=== PATIENT | male | born 1950 | race Caucasian/White ===

== ENCOUNTER → 2017-03-01 | Outpatient (CLI) | payer OTHER ==
[~2017-03-01] MED LIST: ATOR80TA45 PO; CALC-131 PO; CINN500T PO; CO Q100C9 PO; CRAN125T PO; CYCL0.8T PO; DAPA1TAB3 PO; DOCU1CAP39 PO; FISH120014 PO; FOLI400T PO; GLIM4TAB PO; GREE315C2 PO; HYDR-3580 PO; JANU50TA8 PO; LISI-519 PO; METO1TAB9 PO; MISC-163; OXCA600T PO; PYRI100T PO; SELE200T2 PO; VITA10004 PO; VITA400C5 PO; WALKER WHEELS/F1 MIS; XARE10TA PO; [UNRECOGNIZED DRUG - CODE] PO
--- NOTE | 2017-03-01 13:49 | RADRPT ---
EXAM DATE/TIME: 03/01/2017 11:42 [place] COMPARISON: No previous studies available for comparison. INDICATIONS : Essential tremors in the hands. DOSE: 5.6 mCi Ioflupane Iodine-123 in 2.5 ml total volume MEDICATION(S): 130 mg Potasium Iodine PO one hour prior to injection SPECT IMAGIN.5 hrs. IMAGNG: SPECT/CT imaging with fusion was performed. RADIATION DOSE: 30.27 CTDIvol (mGy) MEDICAL HISTORY : Hypertension. Diabetes mellitus type 2. Myocardial infarction. SURGICAL HISTORY : CABG Total knee replacement, right. Right elbow. ENCOUNTER: Initial ACUITY: >1 yr PAIN SCALE: 0/10 LOCATION: Head. TECHNIQUE: SPECT imaging of the brain was performed in sagittal, axial and coronal planes. Attenuation correctio n was performed with computed tomography and both the attenuation correction and non-attenuation yamilex ected data sets were reviewed. FINDINGS: There is normal biodistribution of radionuclide with symmetric crescent-shaped areas of activity are in the striatum which appears distinct relative to the surrounding brain tissue. CONCLUSION: Normal biodistribution. There is no evidence for Parkinson's disease. Agus Coelho MD FACR on March 01, 2017 at 13:47 Board Certified Radiologist. This report was verified electronically.
== END ==
LOC: HRAD 07:29
PROVIDERS: ATTEND Specialist
DX: G25.0 Essential tremor (principal); G25.2 Other specified forms of tremor
CPT/HCPCS: 78607; A9584